=== PATIENT | female | born 1995 ===

== ENCOUNTER 2017-01-23 19:50 | Emergency (ER) | payer OTHER, BC ==
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
[2017-01-23] MEDS ORDERED: NORCO 5/325 PO ONE (23:15)
[2017-01-24 07:00] VITALS: BP 146/88
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
== END 2017-01-23 23:40 | disposition home or self-care (01) ==
LOC: ED 19:50
DX: S80.01XA Contusion of right knee, initial encounter (principal); M23.91 Unspecified internal derangement of right knee; V43.52XA Car driver injured in collision with other type car in traffic accident, initial encounter; Y93.89 Activity, other specified; Y99.8 Other external cause status; Y92.89 Other specified places as the place of occurrence of the external cause
CPT/HCPCS: 81025